=== PATIENT | male | born 1960 | race Caucasian/White ===

== ENCOUNTER 2023-03-02 09:54 | Emergency (ER) | payer OTHER, MEDICAID, SELFPAY ==
[2023-03-02 09:59] VITALS: BP 172/82; PULSE 60; RESP 14; TEMP 36.1; O2SAT 100; BMI 23.5
--- NOTE | 2023-03-02 10:07 | DI.RAD.S_ITS ---
PROCEDURE: XR HAND RT MIN 3V INDICATIONS: hand injury TECHNIQUE: 3 views of the hand(s) acquired. COMPARISON: None. FINDINGS: Bones: No fractures or dislocations. Carpal bones are normally aligned. No suspicious bony lesions. Soft tissues: No suspicious soft tissue calcifications. IMPRESSION: No acute fracture. No osseous lesion. If symptoms and/or clinical suspicion for pathology persist, further assessment with repeat, or advanced imaging (e.g., CT, MRI, or bone scan) may be helpful for further assessment. Dictated by: Espinoza Galeana M.D. on 03/02/2023 at 10:40 Approved by: Espinoza Galeana M.D. on 03/02/2023 at 10:40
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
[2023-03-02] MEDS: ACETAMINOPHEN 325 MG TABLET 975 MG PO (11:44)
[2023-03-02] MEDS: IBUPROFEN 400 MG TABLET 800 MG PO (11:44)
[2023-03-02 12:45] VITALS: BP 176/85; PULSE 50; RESP 16; O2SAT 97
== END 2023-03-02 12:53 | disposition home or self-care (01) ==
PROVIDERS: Emergency Provider Physician Assistant
DX: S63.641A Sprain of metacarpophalangeal joint of right thumb, initial encounter (principal); S16.1XXA Strain of muscle, fascia and tendon at neck level, initial encounter; V89.2XXA Person injured in unspecified motor-vehicle accident, traffic, initial encounter
CPT/HCPCS: 72040; 73130; 99283